=== PATIENT | male | born 1965 | race Caucasian/White ===

== ENCOUNTER 2017-08-16 07:39 | Emergency (ER) | payer BC ==
[~2017-08-16] VITALS: Ht 180.3 cm; Wt 90.9 kg
[2017-08-16 08:15] LABS: HEMATOCRIT 46.9 % (42.0-52.0); HEMOGLOBIN 16.1 g/dl (13.5-18.0); MEAN CELL VOLUME 88 fl (80.0-100.0); MEAN CORPUSCULAR HEMOGLOBIN 30 pg (27.0-31.0); MEAN CORPUSCULAR HGB CONC 34 g/dl (33.0-37.0); MEAN PLATELET VOLUME 9.6 fl (7.4-10.4); PLATELET COUNT 270 K/mm3 (130-400); RED BLOOD COUNT 5.35 M/mm3 (4.20-5.60); REDCELL DISTRIBUTION WIDTH-CV 12.5 % (11.5-14.5)
[2017-08-16 08:24] LABS: ALBUMIN 4.6 gm/dL (3.5-5.0); BILIRUBIN,TOTAL 0.7 mg/dL (0.0-1.0); CALCIUM 9.4 mg/dL (8.4-10.2); CREATININE, serum 1.11 mg/dL (0.66-1.25); POTASSIUM 3.5 mmol/L (3.4-5.0); TOTAL PROTEIN 7.9 gm/dL (6.4-8.2)
[2017-08-16 08:32] LABS: COLLECTION METHOD CLEAN CATCH
[2017-08-16 08:37] LABS: BAND 2 % (0-10); LYMPHOCYTE 11 % (20.0-51.0); NEUTROPHILS 77 % (42.0-75.2); PLATELET ESTIMATE NORMAL (NORMAL)
[2017-08-16 08:38] LABS: PH 5 (5-8); URINE APPEARANCE Hazy; URINE BILIRUBIN Negative (NEGATIVE); URINE BLOOD 1+ (NEGATIVE); URINE COLOR Amber; URINE GLUCOSE Negative (NEGATIVE); URINE KETONE Trace (NEGATIVE); URINE LEUKOCYTE ESTERASE Negative (NEGATIVE); URINE NITRATE Negative (NEGATIVE); URINE PROTEIN(semi-quant) 2+ (NEGATIVE); URINE UROBILINOGEN Negative (NEGATIVE)
[2017-08-16 08:53] LABS: MUCOUS Present /lpf; SQUAMOUS EPITHELIAL 0-2 /hpf; URINE BACTERIA Rare /hpf; URINE RBC 0-2 /hpf
[2017-08-16] MEDS ORDERED: PREDNISONE20 MG PO (09:05)
[2017-08-16] MEDS ORDERED: LEVAQUIN 750MG750 M1 PO (09:05)
[2017-08-16 09:17] VITALS: BP 120/90; PULSE 80; TEMP 99.5
== END 2017-08-16 09:20 | disposition home or self-care (01) ==
LOC: COL.ER 07:39
PROVIDERS: Nurse Practitioner
DX: R10.9 Unspecified abdominal pain (principal); K21.9 Gastro-esophageal reflux disease without esophagitis; K58.9 Irritable bowel syndrome, unspecified
CPT/HCPCS: J0561

== ENCOUNTER 2018-02-15 23:21 | Emergency (ER) | payer SELFPAY ==
[~2018-02-15] VITALS: Ht 180.3 cm; Wt 90.9 kg
[~2018-02-15 23:21] MED LIST: LEVAQUIN 750MG750 M1 PO; PREDNISONE20 MG PO
[2018-02-15 23:25] VITALS: BP 133/85; TEMP 97.3
[2018-02-15] MEDS ORDERED: HCTZ 25MG TAB25 MG PO (23:44)
[2018-02-16 00:50] VITALS: PULSE 80
== END 2018-02-16 00:53 | disposition home or self-care (01) ==
LOC: COL.ER 23:21
DX: T16.2XXA Foreign body in left ear, initial encounter (principal); I10 Essential (primary) hypertension; Z87.442 Personal history of urinary calculi